=== PATIENT | female | born 1985 | race Caucasian/White ===

== ENCOUNTER 2017-08-09 14:57 | Emergency (ER) | payer SELFPAY ==
--- NOTE | 2017-08-09 16:51 | C.PDOC ---
History Of Present Illness 32 y/o female hx Bipolar and schizophrenia presents to the ED with brother c/ o 2 week homelessness, erratically not taking medications , sleeping outside, appears to be withdrawn ,and having excessive thinking. The brother states that [facility] referred the patient to come to [facility]. The brother states that there is a wound on the back of the head of the patient. The brother reports that the patient was invited to go to the house of a stranger and the patient willingly accepted. Additionally, the brother reports that he filed for a missing person's report with the police due to excessive outside wondering of the patient. The patient denies new injury , chest pain , and Sob. 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) Onset/Duration Of Symptoms: Days Current Symptoms Are (Timing): Still Present Past Medical History Reviewed: Historical Data, Nursing Documentation, Vital Signs Vital Signs: Last Vital Signs Temp 98.6 F 08/09/17 15:50 Pulse 70 08/09/17 15:50 Resp 18 08/09/17 15:50 BP 112/74 08/09/17 15:50 Pulse Ox 100 08/09/17 18:45 - Medical History PMH: Bipolar Disorder, Schizophrenia Family History: States: No Known Family Hx - Social History Hx Alcohol Use: No Hx Substance Use: No - Immunization History Hx Tetanus Toxoid Vaccination: No Hx Influenza Vaccination: No Hx Pneumococcal Vaccination: No Review Of Systems Except As Marked, All Systems Reviewed And Found Negative. Constitutional: Negative for: Fever Cardiovascular: Negative for: Chest Pain Respiratory: Negative for: Cough, Shortness of Breath Gastrointestinal: Negative for: Nausea, Vomiting Skin: Negative for: Rash Neurological: Positive for: Other (bizarre affect) Physical Exam - Physical Exam Appears: Non-toxic Skin: Warm, Dry Head: Atraumatic, Normacephalic, Other (Chronic occipital wound with matted hair and no signs of infection ) Eye(s): bilateral: Normal Inspection Oral Mucosa: Moist Neck: Supple Chest: Symmetrical, No Tenderness Cardiovascular: Rhythm Regular Respiratory: Normal Breath Sounds, No Rales, No Rhonchi Gastrointestinal/Abdominal: Soft, No Tenderness, No Guarding, No Rebound Back: No CVA Tenderness Extremity: Capillary Refill (2<sec.) Neurological/Psych: Normal Motor, Normal Sensation, Other (bizarre affect) Gait: Steady ED Course And Treatment - Laboratory Results Result Diagrams: 08/09/17 17:17 08/09/17 17:17 O2 Sat by Pulse Oximetry: 100 (RA) Progress Note: Pending on UA ,head Ct scan ,and Crisis disposition. Send out to Dr. York for exam results. Disposition - Disposition Disposition Time: 19:00 Condition: GUARDED Forms: [employer] (Sammarinese) - Clinical Impression Clinical Impression: Psychosis - Scribe Statement The provider has reviewed the documentation as recorded by the Temi Burns Physician Patient Turnover Patient Signed Over To: Calli York Handoff Comments: pending ct scan, urine tox and disposition to crisis
[2017-08-09 17:20] LABS: BASO # 0.1 K/uL (0.0-0.2); EOS # 0.1 K/uL (0.0-0.7); EOS % 1.2 % (0.0-4.0); HEMOGLOBIN 13.6 g/dL (11.0-16.0); LYMPH # 1.9 K/uL (1.0-4.3); LYMPH % 29.8 % (20.0-40.0); MEAN CELL VOLUME 89.8 fL (81.0-99.0); MEAN CORPUSCULAR HEMOGLOBIN 29.8 pg (27.0-31.0); MEAN CORPUSCULAR HGB CONC 33.1 g/dL (33.0-37.0); MEAN PLATELET VOLUME 9.1 fL (7.2-11.7); MONO # 0.4 K/uL (0.0-0.8); MONO % 6.7 % (0.0-10.0); NEUT % 61.3 % (50.0-75.0); NRBC % 0.1 % (0.0-2.0); RBC 4.56 Mil/uL (3.80-5.20); RED CELL DISTRIBUTION WIDTH 14.7 % (11.5-14.5); WHITE BLOOD COUNT 6.5 K/uL (4.8-10.8)
[2017-08-09 17:33] LABS: ALBUMIN 4.6 g/dL (3.5-5.0); ALT/SGPT 38 U/L (9-52); AST/SGOT 49 U/L (14-36); BLOOD UREA NITROGEN 12 mg/dL (7-17); CALCIUM 8.8 mg/dl (8.6-10.4); GFR AFRICAN-AMERICAN > 60; GFR NON-AFRICAN AMERICAN > 60
[2017-08-09 17:36] LABS: ALB/GLOB RATIO 1.3 (1.0-2.1)
[2017-08-09] MEDS ORDERED: Potassium Chloride 20 mEq ER Tab PO STA (18:37)
[2017-08-09 20:25] LABS: BARBITURATES, UR NEGATIVE (NEGATIVE); BENZODIAZEPINES, UR NEGATIVE (NEGATIVE); OPIATES, UR NEGATIVE (NEGATIVE); PHENCYCLIDINE, UR NEGATIVE (NEGATIVE)
[2017-08-09 20:31] LABS: SQUAMOUS EPITHIAL 20 /hpf (0-5); URINE BACTERIA OCC (<OCC); URINE BILIRUBIN NEGATIVE (NEGATIVE); URINE BLOOD 1+ (NEGATIVE); URINE CLARITY Hazy (Clear); URINE COLOR Amber (YELLOW); URINE GLUCOSE (UA) NORMAL (Normal); URINE LEUKOCYTE ESTERASE 2+ Leu/uL (Negative); URINE NITRATE NEGATIVE (NEGATIVE); URINE PROTEIN 1+ mg/dL (NEGATIVE)
--- NOTE | 2017-08-09 21:04 | CT ---
EXAM: CT Head Without Intravenous Contrast CLINICAL HISTORY: 32 years old, female; Signs and symptoms; Dizziness TECHNIQUE: Axial computed tomography images of the head/brain without intravenous contrast. All CT scans at this facility use one or more dose reduction techniques, viz.: automated exposure control; ma/kV adjustment per patient size (including targeted exams where dose is matched to indication; i.e. head); or iterative reconstruction technique. Coronal and sagittal reformatted images were created and reviewed. COMPARISON: No relevant prior studies available. FINDINGS: Brain: Mild atrophy. No intracranial hemorrhage. No mass. No definite edema. Ventricles: No hydrocephalus. Bones/joints: No acute fracture. Soft tissues: Parietal soft tissue swelling. Sinuses: Scattered mild mucosal thickening of ethmoid sinuses. Mastoid air cells: No mastoid effusion. Orbits: Unremarkable as visualized. IMPRESSION: 1. No definite acute intracranial abnormality. 2. Incidental/non-acute findings are described above.
[2017-08-09] MEDS ORDERED: Potassium Chloride 20 mEq ER Tab PO ONE (22:57)
[2017-08-09] MEDS ORDERED: Potassium Chloride 10 mEq ER Tab PO STA (23:19)
--- NOTE | 2017-08-10 07:45 | C.PDOC ---
History Of Present Illness 32 y/o female presents to the ER Time Seen by Provider: 08/09/17 15:59 Chief Complaint (Nursing): Psychiatric Evaluation History Per: Patient History/Exam Limitations: no limitations Onset/Duration Of Symptoms: Hrs Current Symptoms Are (Timing): Still Present Past Medical History Reviewed: Historical Data, Nursing Documentation, Vital Signs Vital Signs: Last Vital Signs Temp 98.9 F 08/10/17 06:19 Pulse 83 08/10/17 03:23 Resp 77 H 08/10/17 06:19 BP 106/69 08/10/17 06:19 Pulse Ox 97 08/10/17 07:57 - Medical History PMH: Bipolar Disorder, Schizophrenia Denies: Diabetes, Hepatitis, HIV, HTN, Seizures, Sexually Transmitted Disease Surgical History: No Surg Hx Family History: States: No Known Family Hx - Social History Hx Alcohol Use: No Hx Substance Use: No - Immunization History Hx Tetanus Toxoid Vaccination: No Hx Influenza Vaccination: No Hx Pneumococcal Vaccination: No Review Of Systems Except As Marked, All Systems Reviewed And Found Negative. Physical Exam - Physical Exam Appears: No Acute Distress, Other (awake, alert) Skin: Normal Color, Warm Head: Atraumatic, Normacephalic, Other (large scab on back of head) Eye(s): bilateral: Normal Inspection, PERRL Nose: Normal Oral Mucosa: Moist Neck: Supple Chest: Symmetrical Cardiovascular: Rhythm Regular Respiratory: Normal Breath Sounds, No Accessory Muscle Use Gastrointestinal/Abdominal: Normal Exam, Soft, No Tenderness Extremity: Normal ROM Neurological/Psych: Oriented x3, Normal Speech, Normal Cognition, Normal Motor, Normal Sensation ED Course And Treatment - Laboratory Results Result Diagrams: 08/09/17 17:17 08/09/17 17:17 O2 Sat by Pulse Oximetry: 97 (RA) Pulse Ox Interpretation: Normal Disposition - Disposition Condition: GUARDED Forms: [employer] (Ch[place]) - Clinical Impression Clinical Impression: Psychosis Addendum Addendum: 08/10/17 08:00 Patient signed out by . Of note, patient is non-compliant with medications. Case will be discussed with Crisis.
--- NOTE | 2017-08-10 08:25 | RAD ---
PROCEDURE: CHEST RADIOGRAPH, 1 VIEW HISTORY: psych clearance COMPARISON: None available. FINDINGS: LUNGS: Clear. Shallow lung volumes PLEURA: No pneumothorax or pleural fluid seen. CARDIOVASCULAR: Mild cardiomegaly. Pulmonary vasculature -within normal limits. OSSEOUS STRUCTURES: Rightward convexity and slight thoraco lumbar level - patient's positioning may be exaggerating VISUALIZED UPPER ABDOMEN: Normal. OTHER FINDINGS: None. IMPRESSION: No acute pulmonary pathology. Mild cardiomegaly -chronicity unknown
[2017-08-10 10:16] VITALS: RESP 16
--- NOTE | 2017-08-10 12:56 | PCM.PSYCH ---
Initial Psychiatric Evaluation - Initial Psychiatric Evaluation Type of Admission: Involuntary Chief Complaint (in patient's own words): "I don't know" History of Present Illness and Precipitating Events: The pt is seen ED for a psych consult re her psychosis. She is seen, chart reviewed and case discussed She is a 32 y/o WF, single with no child, living in a boarding home here in [place]. She was in a psych hospital in [place] for six weeks, per her brother and sent to [place] where her family lives. However, since she came (recently), she has been leaving the boarding home, talking to strangers, eating food from garbage, talking to self, hearing voices, and she went missing couple of days. Police found her in position on the street and brought o hospital. She wouldn't comment on any of these and talks illogically. She told our worker last night that she wouldn't take certain meds, ie Risperdal , but per collateral info, she was not taking any of her meds. No drug/alcohol use Past psych hx: Schizoaffective d/o (vs schizophrenia), many admissions, used many antipsychotics but details unknown Medical hx: Denied Family psych hx: Denied Current Medications: Active Medications Generic Name Dose Route Start Last Admin Trade Name Freq PRN Reason Stop Dose Admin Aripiprazole 5 mg 08/10/17 13:00 Abilify PO BID JANNETTE Clonazepam 0.5 mg 08/10/17 13:00 Klonopin PO BID JANNETTE Past Psychiatric History - Past Psychiatric History Previous Treatment History: Inpatient Pertinent Medical Hx (Current Medical&Sleep Prob, Allergies): Allergies Allergy/AdvReac Type Severity Reaction Status Date / Time Unobtainable Allergy Verified 08/09/17 16:11 FLUoxetine [Prozac] 10 mg PO DAILY 08/09/17 Quetiapine Fumarate [Seroquel] 50 mg PO DAILY 08/09/17 Review of Systems - Neurological Neurological: Confusion, UNREMARKABLE - Psychiatric Psychiatric: Abnormal Sleep Pattern, Anxiety, Confusion, Difficulty Concentrating, Paranoia (likely). absent: Homicidal Ideation, Suicidal Ideation Mental Status Examination - Personal Presentation Personal Presentation: Looks stated age - Affect Affect: Flat (and odd) - Motor Activity Motor Activity: Calm - Reliability in Providing Information Reliability in Providing Information: Poor, due to alteration in thoughts - Speech Speech: Disorganized - Mood Mood: Anxious - Formal Thought Process Formal Thought Process: Paranoia, Loosening of associations - Cognitive Functions Orientation: Person, Place, Time (noyt in details though) Attention/Concentration: Easily distracted Abstract Thinking: [place] Estimate of Intelligence: Average Judgement: Imparied, as evidence by: Poor judgement Memory: Recent impaired, as evidence by: Inability to recall events of the day, Remote impaired as evidenced by: Inability to recall sig life events - Risk Risk: Diminished functioning - Strength & Assets Inventory Strength & Assets Inventory: Family support, Cooperative DSM 5 DX - DSM 5 DSM 5 Diagnosis: Schizoaffectove d/o - bipolar type r/o Schizophrenia, acute exacerbation - Recommended/Plan of Treatment Treatment Recommendations and Plan of Treatment: Follow up [place] [facility] Vu for psychosis Vanessa for anxiety [facility] Support and pcyhoed 32 min
[2017-08-10 20:04] VITALS: O2SAT 97
[2017-08-10 22:31] VITALS: TEMP 98.1
--- NOTE | 2017-08-11 00:03 | CARD ---
APPROVED REPORT EKG Measurement Heart [id number] <Conclusion> Normal sinus rhythm Cannot rule out Anterior infarct, age undetermined Abnormal ECG
[2017-08-11 00:57] VITALS: BP 111/75; PULSE 63
== END 2017-08-11 01:10 | disposition short-term general hospital (02) ==
LOC: C.ER 14:57 → EDBD 14:57 → C.ER 08-11 01:10
DX: F25.0 Schizoaffective disorder, bipolar type (principal); E87.6 Hypokalemia
CPT/HCPCS: 70450; 71045; 80053; 81001; 85025; 93005; 96372; 99285; G0480; J3486